=== PATIENT | female | born 1990 | race Caucasian/White ===

== ENCOUNTER 2018-09-30 04:20 | Observation (INO) | payer BC ==
--- NOTE | 2018-09-30 06:17 | US ---
INDICATION: KICKED TO ABD BY 2YR OLDCHECK PLACENTA AND BPP Indication: Recent trauma. Technique: obstetric ultrasound. Comparison: None. Findings: There is a single living intrauterine fetus, currently in a cephalic presentation. The placenta is fundal. There is no retroplacental fluid collection or hematoma. No findings to indicate placenta previa. Subjectively, amniotic fluid volume is within normal limits. Cardiac activity by M-mode ultrasound is 133 beats per minute. CHEO is 22.1 cm. Normal tone, movement, and amniotic fluid volume are present. The fetus did not meet criteria for normal breathing. Impression: 1. No evidence for placental abruption. No retroplacental fluid collection or hematoma. 2. Biophysical profile score is 6 out of 8. Dictated by Erick Lora MD @ 09/30/2018 6:16:59 AM Dictated by: Erick Lora MD @ 09/30/2018 06:17:05 (Electronically Signed)
[2018-09-30] MEDS ORDERED: Lactated Ringers 1,000 ML IV ONE (09:35)
[2018-09-30] MEDS ORDERED: Iron Sucrose Complex 100 MG in Sodium Chloride 0.9% 100 ML IV ONE (10:00)
[2018-09-30] MEDS: Lactated Ringers 1,000 ML IV SCH (11:05)
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
[2018-09-30] MEDS ORDERED: Acetaminophen 500 MG Tab PO PRN (17:43)
[2018-10-01] MEDS: Lactated Ringers 1,000 ML IV SCH (07:27)
[2018-10-01] MEDS ORDERED: Promethazine 25 MG/ML SDV IM ONE (07:57)
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
--- NOTE | 2018-10-05 11:29 | US ---
EXAM DATE: 09/30/18 PATIENT'S AGE: 28 Patient: JAYY EUBANKS Facility: [facility] Site . Site : 1990 Study: US-OB Pelvis [id number]/2018 6:13:34 AM Ordering Physician: Renan Dietrich Final Report: INDICATION: KICKED TO ABD BY 2YR OLDCHECK PLACENTA AND BPP Indication: Recent trauma. Technique: obstetric ultrasound. Comparison: None. Findings: There is a single living intrauterine fetus, currently in a cephalic presentation. The placenta is fundal. There is no retroplacental fluid collection or hematoma. No findings to indicate placenta previa. Subjectively, amniotic fluid volume is within normal limits. Cardiac activity by M-mode ultrasound is 133 beats per minute. CHEO is 22.1 cm. Normal tone, movement, and amniotic fluid volume are present. The fetus did not meet criteria for normal breathing. Impression: 1. No evidence for placental abruption. No retroplacental fluid collection or hematoma. 2. Biophysical profile score is 6 out of 8. Dictated by Erick Lora MD @ 09/30/2018 6:16:59 AM Dictated by: Erick Lora MD @ 09/30/2018 06:17:05 Signed by: Erick Lora MD @09/30/2018 6:17:05 AM (Electronic Signature) Report Signed by Proxy. [facility]
== END 2018-10-01 12:15 | disposition home or self-care (01) ==
LOC: MW.OBCHECK 04:20 → MW.OB 04:24 → MW.OBCHECK 04:27
PROVIDERS: ADMIT Obstetrics & Gynecology; ATTEND Obstetrics & Gynecology
DX: O9A.213 Injury, poisoning and certain other consequences of external causes complicating pregnancy, third trimester (principal); S39.81XA Other specified injuries of abdomen, initial encounter; O99.013 Anemia complicating pregnancy, third trimester; D50.9 Iron deficiency anemia, unspecified; Z3A.35 35 weeks gestation of pregnancy; W50.0XXA Accidental hit or strike by another person, initial encounter
CPT/HCPCS: 36415; 76815; 76819; 85025; 85384; 96361; 96372; 96374; A9270; G0378; J1756; J2550; J7030; J7120; 59025

== ENCOUNTER 2018-12-17 14:46 | Emergency (ER) | payer BC ==
[2018-12-17] MEDS ORDERED: Sodium Chloride 0.9% 1,000 ML IV ONE (14:55)
[2018-12-17] MEDS ORDERED: Ondansetron 4 MG/2 ML SDV IVPUSH ONE (14:57)
[2018-12-17] MEDS ORDERED: Morphine 2 MG/ML Syringe IVPUSH ONE (14:57)
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
[2018-12-17 15:31] LABS: CHLORIDE,CL 105 mmol/L (98-107); SODIUM,NA 140 mmol/L (136-145)
--- NOTE | 2018-12-17 16:42 | CT ---
INDICATION: Right lower quadrant pain TECHNIQUE: CT abdomen and pelvis acquired with 100 cc Isovue 370 IV contrast. COMPARISON: None FINDINGS: Lower chest: Unremarkable. Liver: Unremarkable. Spleen: Unremarkable. Pancreas: Unremarkable. Gallbladder and bile ducts: Unremarkable. Adrenal glands: Unremarkable. Kidneys: Unremarkable. GI tract: Unremarkable. Appendix is normal. Vascular structures: Unremarkable. Lymph nodes: Unremarkable. Miscellaneous: Unremarkable. No free air or significant free fluid. Pelvic Organs: Unremarkable. Bones: Unremarkable for age. IMPRESSION: Unremarkable CT of the abdomen and pelvis. Please note that all CT scans at this facility use dose modulation, iterative reconstruction, and/or weight-based dosing when appropriate to reduce radiation dose to as low as reasonably achievable. Dictated by Jesenia Michael MD @ Dec 17 2018 4:36PM Signed by Dr. Jesenia Michael @ Dec 17 2018 4:40PM
[2018-12-17 17:13] VITALS: BP 120/61
[2018-12-17] MEDS ORDERED: Iopamidol 755 MG/ML 500 ML Multipack Bottle IVPUSH STA (19:10)
== END 2018-12-17 17:20 | disposition home or self-care (01) ==
LOC: MW.ED 14:46
DX: R10.31 Right lower quadrant pain (principal)
CPT/HCPCS: 36415; 74177; 80053; 81003; 81025; 83690; 85025; 96361; 96374; 96375; 99285; J2270; J2405; J7040; Q9967; 99283

== ENCOUNTER 2019-05-19 07:49 | Emergency (ER) | payer BC ==
[2019-05-19 07:58] VITALS: BP 105/61; PULSE 72
[2019-05-19] MEDS ORDERED: Phenazopyridine 200 MG Tab PO ONE (08:02)
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
[2019-05-19] MEDS ORDERED: Sulfamethoxazole/Trimethoprim 800-160 MG Tab PO ONE (08:33)
== END 2019-05-19 08:40 | disposition home or self-care (01) ==
LOC: MW.ED 07:49
DX: N39.0 Urinary tract infection, site not specified (principal); J45.909 Unspecified asthma, uncomplicated; Z91.018 Allergy to other foods
CPT/HCPCS: 81001; 81025; 99284; A9270

== ENCOUNTER 2019-08-07 03:10 | Emergency (ER) | payer BC, OTHER ==
[2019-08-07 03:22] VITALS: BP 117/66; PULSE 75
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
== END 2019-08-07 04:48 | disposition home or self-care (01) ==
LOC: MW.ED 03:10
DX: H60.91 Unspecified otitis externa, right ear (principal); Z91.018 Allergy to other foods
CPT/HCPCS: 99282; 99283

== ENCOUNTER 2019-08-08 10:33 | Emergency (ER) | payer SELFPAY ==
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
[2019-08-08 13:39] VITALS: BP 119/71; PULSE 64
== END 2019-08-08 11:29 | disposition home or self-care (01) ==
LOC: MW.ED 10:33
DX: H60.91 Unspecified otitis externa, right ear (principal); J45.909 Unspecified asthma, uncomplicated; Z91.011 Allergy to milk products
CPT/HCPCS: 99282